=== PATIENT | female | born 1985 | race Caucasian/White ===

== ENCOUNTER 2018-06-16 08:53 | Day surgery (SDC) | payer OTHER ==
[~2018-06-16 08:53] MED LIST: Sodium Chloride 0.9% 10 ML Syringe FLUSH PRN; Sodium Chloride 0.9% 2.5 ML Syringe FLUSH PRN
[2018-06-16] MEDS ORDERED: Lactated Ringers 1,000 ML IV SCH (09:00)
[2018-06-17] MEDS ORDERED: fentaNYL 100 MCG/2 ML SDV ONE (10:12)
[2018-06-17] MEDS ORDERED: Propofol 200 MG/20 ML SDV ONE (10:12)
[2018-06-17] MEDS ORDERED: Lidocaine 2% 5 ML SDV ONE (10:12)
[2018-06-17] MEDS ORDERED: Midazolam 1 MG/ML 2 ML SDV ONE (10:12)
[2018-06-17] MEDS ORDERED: Lidocaine 1% 0 ML ONE (10:20)
--- NOTE | 2018-06-17 10:24 | PCM.PREANE ---
Preanesthetic Assessment - Anesthesia/Transfusion/Family Hx Anesthesia History: Prior Anesthesia Without Reaction Family History of Anesthesia Reaction: No Transfusion History: No Prior Transfusion(s) Intubation History: Unknown - Review of Systems General: No Symptoms Pulmonary: No Symptoms Cardiovascular: No Symptoms Gastrointestinal: No Symptoms Neurological: No Symptoms Other: Reports: None - Physical Assessment NPO Status Date: 06/16/18 NPO Status Time: 22:30 O2 Sat by Pulse Oximetry: 98 Respiratory Rate: 20 Vital Signs: Last Vital Signs Temp 36.5 C 06/17/18 10:07 Pulse 77 06/17/18 10:07 Resp 20 06/17/18 10:07 BP 117/72 06/17/18 10:07 Pulse Ox 98 06/17/18 10:07 Height: 1.7 m Weight: 77.111 kg ASA Class: 1 Mental Status: Alert & Oriented x3 Dentition: Reports: Normal Dentition, Broken Tooth/Teeth (small chips x1 upper and lower front incisor) Thyro-Mental Finger Breadths: 3 Mouth Opening Finger Breadths: 2 ROM/Head Extension: Full Lungs: Clear to Auscultation, Normal Respiratory Effort Cardiovascular: Regular Rate, Regular Rhythm - Lab Values: Laboratory Last Values WBC 6.68 K/uL (4.0-11.0) 06/16/18 09:45 RBC 4.75 M/uL (4.30-5.90) 06/16/18 09:45 Hgb 15.0 g/dL (12.0-16.0) 06/16/18 09:45 Hct 44.3 % (36.0-46.0) 06/16/18 09:45 MCV 93.3 fL (80.0-98.0) 06/16/18 09:45 MCH 31.6 pg (27.0-32.0) 06/16/18 09:45 MCHC 33.9 g/dL (31.0-37.0) 06/16/18 09:45 RDW Std Deviation 43.1 fl (28.0-62.0) 06/16/18 09:45 RDW Coeff of Emigdio 13 % (11.0-15.0) 06/16/18 09:45 Plt Count 306 K/uL (150-400) 06/16/18 09:45 MPV 10.00 fL (7.40-12.00) 06/16/18 09:45 Nucleated RBC % 0.0 /100WBC 06/16/18 09:45 Nucleated RBCs # 0 K/uL 06/16/18 09:45 HCG, Qual NEGATIVE (NEG) 06/16/18 09:45 Blood Type B POSITIVE 06/16/18 09:45 Antibody Screen NEGATIVE 06/16/18 09:45 - Allergies Allergies/Adverse Reactions: Allergies Allergy/AdvReac Type Severity Reaction Status Date / Time No Known Allergies Allergy Verified 06/14/18 10:48 - Blood Blood Available: No - Anesthesia Plan Pre-Op Medication Ordered: None - Acknowledgements Anesthesia Type Planned: General Anesthesia Pt an Appropriate Candidate for the Planned Anesthesia: Yes Alternatives and Risks of Anesthesia Discussed w Pt/Guardian: Yes Pt/Guardian Understands and Agrees with Anesthesia Plan: Yes PreAnesthesia Questionnaire - Past Health History Medical/Surgical History: Denies Medical/Surgical History HEENT History: Reports: Other (See Below) Other HEENT History: wears glasses Gastrointestinal History: Reports: None Genitourinary History: Reports: None DIRECTOR ADULT History: Reports: , Other (See Below) (h/o PCOS) - Past Surgical History Head Surgeries/Procedures: Reports: None GI Surgical History: Reports: Other (See Below) Other GI Surgeries/Procedures: hernia repair as a infant Female Surgical History: Reports: LEEP (10 years ago) - SUBSTANCE USE Smoking Status *Q: Former Smoker (quit 01/26) Tobacco Use Within Last Twelve Months: Cigarettes Recreational Drug Use History: No - HOME MEDS Home Medications: Home Meds Norgestimate-Ethinyl Estradiol [Sprintec 28 Day Tablet] 1 tab PO DAILY 06/14/18 [History] Spironolactone [Aldactone] 1 tab PO DAILY 06/14/18 [History] - CURRENT (IN HOUSE) MEDS Current Meds: Current Medications Lactated Ringer's (Ringers, Lactated) 1,000 mls @ 125 mls/hr IV ASDIRECTED PRAVIN Last Admin: 06/17/18 10:00 Dose: 125 mls/hr Sodium Chloride (Saline Flush) 10 ml FLUSH ASDIRECTED PRN PRN Reason: Keep Vein Open Sodium Chloride (Saline Flush) 2.5 ml FLUSH ASDIRECTED PRN PRN Reason: Keep Vein Open Discontinued Medications Fentanyl (Sublimaze) Confirm Administered Dose 100 mcg .ROUTE .STK-MED ONE Stop: 06/17/18 10:13 Lidocaine (Xylocaine-Mpf 2%) Confirm Administered Dose 5 ml .ROUTE .STK-MED ONE Stop: 06/17/18 10:13 Midazolam HCl (Versed 1 Mg/Ml) Confirm Administered Dose 2 mg .ROUTE .STK-MED ONE Stop: 06/17/18 10:13 Propofol (Diprivan 20 Ml) Confirm Administered Dose 400 mg .ROUTE .STK-MED ONE Stop: 06/17/18 10:13
[2018-06-17] MEDS ORDERED: EPINEPHrine 1:10,000 1 MG/10 ML Syringe IVPUSH ONE (11:28)
[2018-06-17] MEDS ORDERED: Albuterol 0.083% 2.5 MG/3 ML Neb Soln NEB PRN (11:28)
[2018-06-17] MEDS ORDERED: fentaNYL 100 MCG/2 ML SDV IVPUSH PRN (11:28)
[2018-06-17] MEDS ORDERED: Naloxone 0.4 MG/ML Syringe IVPUSH PRN (11:28)
[2018-06-17] MEDS ORDERED: 50% Dextrose in Water 50 ML Syringe IVPUSH PRN (11:28)
[2018-06-17] MEDS ORDERED: Atropine 1 MG/ML SDV IVPUSH PRN ×2 (11:28)
[2018-06-17] MEDS ORDERED: Morphine 4 MG/ML Syringe IVPUSH PRN (11:34)
[2018-06-17] MEDS ORDERED: Acetaminophen/oxyCODONE 325-5 MG Tab PO PRN (11:34)
[2018-06-17] MEDS ORDERED: Ketorolac 30 MG/ML SDV IVPUSH ONE (11:34)
[2018-06-17] MEDS ORDERED: Promethazine 25 MG/ML SDV IM PRN (11:34)
[2018-06-17] MEDS ORDERED: Ondansetron 4 MG/2 ML SDV IVPUSH PRN (11:34)
[2018-06-17] MEDS ORDERED: Ketorolac 30 MG/ML SDV IVPUSH PRN (11:34)
--- NOTE | 2018-06-17 11:38 | PCM.OPNOTE ---
- General Post-Op/Procedure Note Date of Surgery/Procedure: 06/17/18 Operative Procedure(s): Leep Post-Op Diagnosis: Same Anesthesia Technique: MAC Primary Surgeon: Kirill Adams EBL in mLs: 20 Complications: None Condition: Good
--- NOTE | 2018-06-17 11:40 | PCM.DCSUM1 ---
Discharge Summary - Hospital Course Diagnosis: Stroke: No - Discharge Data Discharge Date: 06/17/18 Discharge Disposition: Home, Self-Care 01 Condition: Good - Patient Summary/Data Operative Procedure(s) Performed: Leep - Patient Instructions Diet: Usual Diet as Tolerated Activity: As Tolerated Driving: Do Not Drive Showering/Bathing: May Shower Notify Provider of: Fever, Increased Pain, Nausea and/or Vomiting - Discharge Plan Home Medications: Home Meds Norgestimate-Ethinyl Estradiol [Sprintec 28 Day Tablet] 1 tab PO DAILY 06/14/18 [History] Spironolactone [Aldactone] 1 tab PO DAILY 06/14/18 [History] - Discharge Summary/Plan Comment DC Time >30 min.: Yes - General Info Date of Service: 06/17/18 Functional Status: Reports: Pain Controlled - Review of Systems General: Reports: No Symptoms HEENT: Reports: No Symptoms Pulmonary: Reports: No Symptoms Cardiovascular: Reports: No Symptoms Gastrointestinal: Reports: No Symptoms Genitourinary: Reports: No Symptoms Musculoskeletal: Reports: No Symptoms Skin: Reports: No Symptoms Neurological: Reports: No Symptoms Psychiatric: Reports: No Symptoms - Patient Data Vitals - Most Recent: Last Vital Signs Temp 36.5 C 06/17/18 10:07 Pulse 77 06/17/18 10:07 Resp 20 06/17/18 10:24 BP 117/72 06/17/18 10:07 Pulse Ox 98 06/17/18 10:24 Weight - Most Recent: 77.111 kg Lab Results - Last 24 hrs: Laboratory Results - last 24 hr 06/16/18 Range/Units 09:45 Blood Type B POSITIVE Antibody Screen NEGATIVE Med Orders - Current: Current Medications Albuterol (Proventil Neb Soln) 2.5 mg NEB ONETIME PRN PRN Reason: Wheezing Atropine Sulfate (Atropine 1 Mg/Ml) 1 mg IVPUSH ASDIRECTED PRN PRN Reason: ACLS Guidelines Atropine Sulfate (Atropine 1 Mg/Ml) 0.5 mg IVPUSH ASDIRECTED PRN PRN Reason: Hypo-Perfusion Dextrose/Water (Dextrose 50% In Water) 50 ml IVPUSH ASDIRECTED PRN PRN Reason: Hypoglycemia Fentanyl (Sublimaze) 50 - 100 mcg IVPUSH Q5M PRN PRN Reason: Pain Lactated Ringer's (Ringers, Lactated) 1,000 mls @ 125 mls/hr IV ASDIRECTED PRAVIN Last Admin: 06/17/18 10:00 Dose: 125 mls/hr Ketorolac Tromethamine (Toradol) 30 mg IVPUSH ONETIME ONE Stop: 06/17/18 11:35 Ketorolac Tromethamine (Toradol) 30 mg IVPUSH Q6H PRN PRN Reason: Pain (severe 7-10) Stop: 06/22/18 11:34 Morphine Sulfate (Morphine) 4 mg IVPUSH Q2H PRN PRN Reason: Pain (severe 7-10) Naloxone HCl (Narcan) 0.1 mg IVPUSH ASDIRECTED PRN PRN Reason: Respiratory Depression Ondansetron HCl (Zofran) 4 mg IVPUSH Q6H PRN PRN Reason: Nausea/Vomiting Oxycodone/Acetaminophen (Percocet 325-5 Mg) 2 tab PO Q4H PRN PRN Reason: Pain (moderate 4-6) Promethazine HCl (Phenergan) 25 mg IM Q6H PRN PRN Reason: Nausea/Vomiting Sodium Chloride (Saline Flush) 10 ml FLUSH ASDIRECTED PRN PRN Reason: Keep Vein Open Sodium Chloride (Saline Flush) 2.5 ml FLUSH ASDIRECTED PRN PRN Reason: Keep Vein Open Discontinued Medications Epinephrine HCl (Epinephrine 1:10,000) 1 mg IVPUSH NOW ONE Stop: 06/17/18 11:29 Fentanyl (Sublimaze) Confirm Administered Dose 100 mcg .ROUTE .STK-MED ONE Stop: 06/17/18 10:13 Lidocaine HCl (Xylocaine-Mpf 1%) Confirm Administered Dose 10 mls @ as directed .ROUTE .STK-MED ONE Stop: 06/17/18 10:21 Lidocaine (Xylocaine-Mpf 2%) Confirm Administered Dose 5 ml .ROUTE .STK-MED ONE Stop: 06/17/18 10:13 Midazolam HCl (Versed 1 Mg/Ml) Confirm Administered Dose 2 mg .ROUTE .STK-MED ONE Stop: 06/17/18 10:13 Propofol (Diprivan 20 Ml) Confirm Administered Dose 400 mg .ROUTE .STK-MED ONE Stop: 06/17/18 10:13 - Exam General: Reports: Alert, Oriented HEENT: Reports: Pupils Equal, Pupils Reactive, EOMI, Mucous Membr. Moist/[place] Neck: Reports: Supple Lungs: Reports: Clear to Auscultation, Normal Respiratory Effort Cardiovascular: Reports: Regular Rate, Regular Rhythm GI/Abdominal Exam: Normal Bowel Sounds, Soft, Non-Tender, No Organomegaly, No Distention, No Abnormal Bruit, No Mass, Pelvis Stable (Female) Exam: Normal External Exam, Normal Speculum Exam, Normal Bimanual Exam Rectal (Female) Exam: Normal Exam, Normal Rectal Tone Back Exam: Reports: Normal Inspection, Full Range of Motion Extremities: Normal Inspection, Normal Range of Motion, Non-Tender, No Pedal Edema, Normal Capillary Refill Skin: Reports: Warm, Dry, Intact Wound/Incisions: Reports: Healing Well Neurological: Reports: No New Focal Deficit Psy/Mental Status: Reports: Alert, Normal Affect, Normal Mood
[2018-06-17 12:10] VITALS: BP 115/75
--- NOTE | 2018-06-17 12:56 | OR ---
SURGEON: Kirill Adams MD DATE OF PROCEDURE: PREOPERATIVE DIAGNOSES: Abnormal Pap smear, abnormal colposcopy, high-grade human papillomavirus virus. POSTOPERATIVE DIAGNOSES: Abnormal Pap smear, abnormal colposcopy, high-grade human papillomavirus virus. OPERATION PERFORMED: LEEP conization of the cervix. LOGISTICAL ENGINEER: OR tech. ANESTHESIA: Mask with [place] and 1% xylocaine, local infiltration. INDICATION FOR SURGERY: The patient does have repeat persistent abnormal Pap smear with high grade HPV virus. She have abnormal colposcopy. The patient is admitted for LEEP conization for diagnostic and therapeutic purposes. PROCEDURE IN DETAIL: The patient was brought to the OR, properly identified, and after adequate level of anesthesia, the patient was placed in lithotomy position and prepped and draped in sterile fashion as usual. Straight catheter was used to empty the bladder, and a short weighted speculum was placed in the vagina. Allis clamp applied at 3 and 9 o'clock of the side of the cervix to block the blood supply, and then 1% xylocaine with epi infiltrated locally. Once that was done, then shallow LEEP conization was performed. The specimen was removed and labeled at 12 o'clock and sent for histopathology, and the base of the leads was cauterized with electrocautery, and there was minimum bleeding. The patient tolerated the procedure well, went to recovery room in stable general condition. MARY / SUMMER /[id number]
== END 2018-06-17 12:35 | disposition home or self-care (01) ==
LOC: MW.SDS 08:53
PROVIDERS: ATTEND Obstetrics & Gynecology
DX: N87.1 Moderate cervical dysplasia (principal); R87.811 Vaginal high risk human papillomavirus (HPV) DNA test positive; E28.2 Polycystic ovarian syndrome; Z87.891 Personal history of nicotine dependence; Z79.899 Other long term (current) drug therapy; Z91.048 Other nonmedicinal substance allergy status
CPT/HCPCS: 36415; 57522; 84703; 85027; 86850; 86900; 86901; J2001; J2250; J2704; J3010; J7120